=== PATIENT | male | born 1970 | race Caucasian/White ===

== ENCOUNTER 2023-09-17 06:48 | Outpatient (CLI) | payer OTHER ==
--- NOTE | 2023-09-17 14:56 | Ultrasound Report ---
PROCEDURE: Pelvic Limited INDICATIONS: GROIN PAIN TECHNIQUE: Real-time transabdominal scanning was performed of the pelvic organs, with image documentation. COMPARISON: None. FINDINGS: There is a fat-containing reducible right inguinal hernia with defect of the hernia measuring approxi mately 1.3 cm in diameter. Suspicious mass. No adenopathy. No abnormal fluid collection. IMPRESSION: Fat-containing right inguinal hernia. Reviewed by: Alf Alarcon MD on 09/17/2023 2:55 PM PST Approved by: Alf Alarcon MD on 09/17/2023 2:55 PM PST Station ID: [id number]
== END 2023-09-17 06:49 | disposition home or self-care (01) ==
LOC: DI 06:48
PROVIDERS: ATTEND Physician Assistant Medical
DX: K40.90 Unilateral inguinal hernia, without obstruction or gangrene, not specified as recurrent (principal)

== ENCOUNTER 2023-11-10 11:16 | Day surgery (SDC) | payer OTHER ==
[~2023-11-10 11:16] MED LIST: ceFAZolin 2 GM VIAL ONE
[2023-11-10] MEDS: LACTATED RINGERS 1,000 ML IV ONE (11:22)
--- NOTE | 2023-11-10 13:22 | ANESTHESIA ---
Pre-Anesthesia VS, & Labs - Diagnosis right inguinal hernia - Procedure right inguinal hernia repair Vital Signs: Temp Pulse Resp BP Pulse Ox O2 Flow Rate 36.5 C 88 16 138/95 H 98 0 11/10/23 11:33 11/10/23 11:33 11/10/23 11:33 11/10/23 11:33 11/10/23 11:33 11/10/23 11:33 Height: 5 ft 8 in Weight (kg): 97 kg Body Mass Index: 32.5 BMI Classification: Obese - NPO >8 hours Last Fluid Intake: 0900 Home Medications and Allergies Home Medications: Ambulatory Orders Cyclobenzaprine [Flexeril] 10 mg PO TID PRN 11/08/23 Meloxicam 15 mg PO DAILY PRN 11/08/23 Cyclobenzaprine [Flexeril] 10 mg PO TID PRN 11/08/23 Meloxicam 15 mg PO DAILY PRN 11/08/23 Allergies/Adverse Reactions: Allergies Allergy/AdvReac Type Severity Reaction Status Date / Time alprazolam [From Xanax] AdvReac Unknown Verified 11/10/23 11:38 Anes History & Medical History - Anesthetic History Anesthesia Complications: reports: Slow wake-up (only on his neck surgery; has woken up fine from other generals; peraps it was related to a TIVA; unsure of etiology) - Medical History Cardiovascular: reports: None Pulmonary: reports: None Gastrointestinal: reports: GERD (very occasional; no symptopms today), Other Urinary: reports: None Neuro: reports: Other (Denies RAYNA; has had a sleep study; but has narcolepsy; daytime sleepiness, takes no meds for this) Musculoskeletal: reports: Chronic back pain Endocrine/Autoimmune: reports: None Skin: reports: None Smoking Status: Never smoker Psychosocial: reports: No issues indicated - Surgical History Orthopedic: reports: Arthroscopic surgery, Spine surgery Results - EKG Results EKG Comparison: Reviewed EKG Exam General: Alert, Oriented x3 Dental: WNL (upper fixed bridege) Mouth Openin Fingerbreadth Neck Mobility: Normal Mallampati classification: II Thyromental Distance: 4-6 cm Respiratory: Lungs clear Plan Anesthesia Type: General Consent for Procedure(s) Verified and Reviewed: Yes Code Status: Attempt Resuscitation ASA classification: 2-Mild systemic disease Is this case an emergency?: No
[2023-11-10] MEDS ORDERED: ePHEDrine 50 MG/ML VIAL IVP PRN (13:31)
[2023-11-10] MEDS ORDERED: fentaNYL 100 MCG/2 ML VIAL IVP PRN (13:31)
[2023-11-10] MEDS ORDERED: METOCLOPRAMIDE 10 MG/2 ML VIAL IVP PRN (13:31)
[2023-11-10] MEDS ORDERED: HYDROmorphone 0.5 MG/0.5 ML SYRINGE IVP PRN (13:31)
[2023-11-10] MEDS ORDERED: MORPHINE 2 MG/ML CARPUJECT IVP PRN (13:31)
[2023-11-10] MEDS ORDERED: NALOXONE 0.4 MG/ML VIAL IVP PRN (13:31)
[2023-11-10] MEDS ORDERED: ATROPINE ABBOJECT 1 MG/10 ML SYRINGE IVP PRN (13:31)
[2023-11-10] MEDS ORDERED: ONDANSETRON 4 MG/2 ML VIAL IVP PRN (13:31)
[2023-11-10] MEDS ORDERED: LACTATED RINGERS 1,000 ML IV SCH (14:00)
[2023-11-10] MEDS ORDERED: BUPIVACAINE 0.25% PF 30 ML VIAL ONE (14:43)
[2023-11-10] MEDS ORDERED: LIDOCAINE-MPF 1% 30 ML VIAL ONE (14:43)
[2023-11-10] MEDS ORDERED: PROPOFOL 200 MG/20 ML VIAL IVP ONE (14:43)
[2023-11-10] MEDS ORDERED: fentaNYL 100 MCG/2 ML VIAL ONE ×2 (14:44→16:35)
[2023-11-10] MEDS ORDERED: MIDAZOLAM 2 MG/2 ML VIAL ONE (14:44)
[2023-11-10] MEDS ORDERED: LIDOCAINE-PF 2% 10 ML AMP SUBQ ONE (14:48)
[2023-11-10] MEDS ORDERED: ONDANSETRON 4 MG/2 ML VIAL ONE (15:32)
[2023-11-10] MEDS ORDERED: DEXAMETHASONE 4 MG/ML VIAL ONE (15:32)
[2023-11-10] MEDS: BUPIVACAINE 0.25% PF 30 ML VIAL SUBQ ONE (15:34)
[2023-11-10] MEDS: LACTATED RINGERS 200 ML IV ONE (16:49)
[2023-11-10] MEDS ORDERED: HYDROcod/ACETAM 5/325 MG TABLET PO PRN (16:54)
--- NOTE | 2023-11-10 17:02 | OPERATIVE REPORT ---
Operative Report - General Procedure Date: 11/10/23 Planned Procedure: open right inguinal hernia repair with mesh Pre-Op Diagnosis: right inguinal hernia Procedure Performed: open right inguinal hernia repair with mesh Post Op Diagnosis: direct inguinal hernia - Procedure Note Primary Surgeon: larry bloom Anesthesia Technique: General LMA, Local Pathology: none sent Estimated Blood Loss (mL): 2 Drain/Tube Type: Other (none) Indications: painful hernia bulge Findings: as above Complications: none - Other Other Information/Narrative: Patient was properly identified brought to the operating room and placed in supine position. Sequential compression devices were placed. General endotracheal anesthesia was induced. He was prepped and draped in a sterile fashion and given preoperative antibiotics. Local anesthetic was given throughout the procedure. A 5 cm incision was made in the direction of Sergio's lines just cephalad of the pubic tubercle. Dissection proceeded with cutting current cautery. The superficial epigastric vein was identified clamped divided and tied with 3-0 Vicryl. Dissection proceeded down to the aponeurosis. The aponeurosis was opened in the direction of its fibers and extended to the external ring. Cord structures were mobilized and brought up. The nerves were carefully protected and preserved. Cord structures were mobilized and brought up. A direct hernia was identified with significant adipose protruding cephalad of the cord.. This bulge was mobilized away from surrounding structures. It was removed with clamp 2-0 silk suture. There was no indirect inguinal hernia. Polypropylene mesh was cut to size and with tails. The mesh was secured with multiple interrupted 0 Ethibond sutures. Sutures were placed along the pubic tubercle, Jun's ligament area and along the shelving border of Poupart's ligament. Sutures were placed medially along the abdominal wall musculature and internal oblique. The medial tail of the mesh was secured to the shelving border of Poupart's ligament with 3 interrupted 0 ethibond sutures recreating the internal ring of appropriate size. Aponeurosis was closed with a running 2-0 Vicryl suture. The opposite was closed with interrupted 3-0 Vicryl suture. Buried interrupted subdermal 3-0 Vicryl sutures were then placed. And was closed with a running 4-0 Monocryl subcuticular suture. Dressing was applied. Patient was awakened and brought to recovery in good condition.
[2023-11-10 19:15] VITALS: BP 138/100; O2SAT 94
--- NOTE | 2023-11-11 10:41 | ANESTHESIA POST OP EVALUATION ---
Anesthesia Post Eval - Post Anesthesia Eval Vitals: Last Vital Signs Temp 36.6 C 11/10/23 19:06 Pulse 92 11/10/23 19:06 Resp 20 11/10/23 19:06 BP 138/100 H 11/10/23 19:06 Pulse Ox 94 11/10/23 19:06 O2 Flow Rate 0 11/10/23 11:33 CV Function Including HR & BP: Stable Pain Control: Satisfactory Nausea & Vomiting: Negative Mental Status: Baseline Respiratory Status: Airway Patent Hydration Status: Satisfactory Anesthesia Complications: None
== END 2023-11-10 19:20 | disposition home or self-care (01) ==
LOC: SDS 11:16 → MS2 16:30 → SDS 19:20
PROVIDERS: ATTEND Surgery
DX: K40.90 Unilateral inguinal hernia, without obstruction or gangrene, not specified as recurrent (principal); E66.9 Obesity, unspecified; Z68.32 Body mass index [BMI] 32.0-32.9, adult
CPT/HCPCS: 49505; C1781; J7120